=== PATIENT | male | born 1995 | race African-American/Black ===

== ENCOUNTER 2023-01-12 12:39 | Emergency (ER) | payer OTHER, SELFPAY ==
--- NOTE | 2023-01-12 12:44 | ED.NAVMDI ---
HPI - Nausea/Vomiting/Diarrhea General Chief complaint: Nausea/Vomiting/Diarrhea Stated complaint: nauseous Time Seen by Provider: 01/12/23 12:44 Source: patient Mode of arrival: ambulatory Limitations: no limitations History of Present Illness HPI Narrative: Farooq is a 27-year-old male patient presenting to the clinic today with complaints of nausea, vomiting, and diarrhea x2 days. He reports he ate some wings from a restaurant on Sunday night developed symptoms after eating. Reports that he is having some abdominal cramping as well. He denies any fever but has had to have some chills and sweats. Related Data Allergies Allergy/AdvReac Type Severity Reaction Status Date / Time No Known Allergies Allergy Verified 01/12/23 12:57 Review of Systems Review of Systems: Pertinent positives per HPI. Patient denies any fever, rash, headache, visual changes, dizziness, cough, runny nose, sore throat, shortness of breath, chest pain, palpitations,constipation, or any urinary issues. PMFSH Comments At the time of my signature, I reviewed and agree with the nursing past medical, surgical, social, and family history. There is no relevant family history pertinent to the patient complaint. Exam Narrative: General: Well-developed, well nourished, in no apparent distress. Head: Normocephalic, atraumatic. Mucous membranes dry Cardio: Regular rate and rhythm, s1 and s2 normal, no murmur appreciated. Resp: Clear to auscultation bilaterally, no rhonchi, rales, wheezing or rubs. Abdomen: Soft, pliable, bowel sounds present in all quadrants, generalized tender to palpation, no organomegly, no CVAT tenderness. Course Course Emergency Course: Portions of this record may have been created with voice recognition software. Level of Care: Express Care Visit Vital Signs Vital signs: Vital signs reviewed MDM - Nausea/Vomiting/Diarrhea MDM Narrative Medical decision making narrative: At the time of visit patient is resting comfortably on the exam table. I suspect the patient has gastroenteritis with mild dehydration. Prescription for Levsin and Zofran was sent to the pharmacy. Supportive measures were discussed with the patient he voiced understanding discharge instructions and agrees to treatment plan. Differential Diagnosis Differential diagnosis: Likely traveler's diarrhea, food poisoning, gastroenteritis, drug-induced nausea and vomiting, dehydration and other (Nausea alone) Discharge Plan Discharge Clinical Impression: Gastroenteritis, Acute dehydration Patient Disposition: Home, Self-Care Condition: Stable Instructions: Antibiotic Form, Dehydration (DC), Gastroenteritis (ED) Additional Instructions: Take Zofran and Levsin as prescribed Increase fluids and stay well hydrated Avoid eating spicy or fatty foods, chocolate, or drinking caffeine. Avoid foods that cause you to feel bloated. Stay upright for at least 30 minutes after eating. Follow up with your PCP in 3-5 days if symptoms persist. Go to the emergency room if you develop high fever not controlled by Tylenol or Motrin, weakness, lethargy, confusion, shortness of breath, chest pain, uncontrolled nausea and vomiting, or worsening of abdominal pain Prescriptions: New ondansetron 4 mg tablet,disintegrating 4 mg PO Q6H PRN (Reason: nausea and vomiting) 3 Days Qty: 12 0RF hyoscyamine sulfate [Levsin] 0.125 mg tablet 0.125 mg PO QID PRN (Reason: dyspepsia) 3 Days Qty: 12 0RF Follow-up/Referrals: UNKNOWN,DOCTOR [Non-Staff] - Stand Alone Forms: Work/School Release IP Time of Disposition: 12:58 Quality NIHSS Nursing Documentation ED NIHSS nursing documentation: reviewed/agree
[2023-01-12 12:53] VITALS: BP 136/57; PULSE 55; RESP 16; TEMP 36.8; O2SAT 100
== END 2023-01-12 13:01 | disposition home or self-care (01) ==
PROVIDERS: Emergency Provider Nurse Practitioner Family; PCP Family Medicine
DX: K52.9 Noninfective gastroenteritis and colitis, unspecified (principal); E86.0 Dehydration
CPT/HCPCS: 99213; G0463